=== PATIENT | female | born 1945 | race Caucasian/White ===

== ENCOUNTER 2018-06-22 12:28 | Emergency (ER) | payer MEDICARE, OTHER ==
[~2018-06-22] VITALS: Ht 149.9 cm; Wt 63.5 kg
[~2018-06-22 12:28] MED LIST: FISH OIL PO; FLONASE16 GM; LOSARTAN POTAS100 MG PO; METOPROLOL SUCC25 MG PO; OMEPRAZOLE-BIC1 EAC1 PO; XANAX0.5 MG PO
--- OUTSIDE RECORDS SUMMARY | 2018-06-22 12:32 | XMS REPORT | Continuity of Care Document ---
Author Author [facility] Interface Address Unknown Phone Unavailable Problems Problem Status Onset Date Classification Date Reported Comments Source HYPERTENSION Active Condition 04/19/2013 [facility] HYPERCHOLESTEROLEMIA Active Condition 04/19/2013 [facility] COPD Active Condition 04/19/2013 [facility] SHORTNESS OF BREATH Active Condition 04/19/2013 [facility] Medications Medication Details Route Status Patient Instructions Ordering Provider Order Date Source CRESTOR 5 MG TABS 1 tab po qd No Longer Active 03/21/2013 [facility] LISINOPRIL-HYDROCHLOROTHIAZIDE 20-12.5 MG TABS 1 tab po qd No Longer Active 03/21/2013 [facility] ZEGERID 40-1100 MG CAPS 1 tab po qd No Longer Active 03/21/2013 [facility] AMLODIPINE BESYLATE 5 MG TABS 1 tab once a day Active 03/21/2013 [facility] ALPRAZOLAM 0.5 MG TABS 2 tabs qd Active 03/21/2013 [facility] ATORVASTATIN CALCIUM 10 MG TABS 1 tab once a day Active 03/21/2013 [facility] LOSARTAN POTASSIUM 100 MG TABS 1 tab once a day Active 03/21/2013 [facility] OMEPRAZOLE-SODIUM BICARBONATE 40-1100 MG CAPS 1 tab twice a day Active 03/21/2013 [facility] NASALCROM 5.2 MG/ACT AERS once a day Active 03/21/2013 [facility] ADVIL 500 MG TABS (IBUPROFEN) 2 tabs once a day Active 03/21/2013 [facility] ALL DAY ALLERGY 10 MG TABS 1 tab once a day Active 03/21/2013 [facility] SUPER B-COMPLEX CAPS 1 tab once a day Active 03/21/2013 [facility] VITAMIN D3 1000 UNIT TABS 1 tab once a day Active 03/21/2013 [facility] MULTI-VITAMINS TABS 1 tab once a day Active 03/21/2013 [facility] COQ10 100 MG CAPS 1 tab once a day Active 03/21/2013 [facility] GLUCOSAMINE HCL 500 MG TABS 1 tab once a day Active 03/21/2013 [facility] CINNAMON 500 MG TABS 1 tab once a day Active 03/21/2013 [facility] FISH OIL 1200 MG CAPS 1 tab once a day Active 03/21/2013 [facility] VITAMIN C 1000 MG TABS 1 tab once a day Active 03/21/2013 [facility] CALCIUM 500 MG CHEW 1 tab once a day Active 03/21/2013 [facility] OCUVITE EYE + MULTI TABS 1 tab once a day Active 03/21/2013 [facility] Allergies, Adverse Reactions, Alerts Substance Category Reaction Severity Reaction type Status Date Reported Comments Source Immunizations Immunization Date Given Site Status Last Updated Comments Source Results Order Name Results Value Reference Range Date Interpretation Comments Source Chemistry CHOLESTEROL 222 mg/dl 02/01/2005 [facility] Chemistry HDL 85 mg/dl 02/01/2005 [facility] Chemistry LDL 122 mg/dl 02/01/2005 [facility] Chemistry TRIGLYCERIDE 73 mg/dl 02/01/2005 [facility] Vital Signs Vital Sign Value Date Comments Source Weight 161 04/18/2013 [facility] Systolic (mm Hg) 130 04/18/2013 [facility] Diastolic (mm Hg) 80 04/18/2013 [facility] Heart Rate 80 04/18/2013 [facility] Weight 153 12/11/2009 [facility] Systolic (mm Hg) 120 12/11/2009 [facility] Diastolic (mm Hg) 70 12/11/2009 [facility] Heart Rate 82 12/11/2009 [facility] Encounters Location Location Details Encounter Type Encounter Number Reason For Visit Attending Provider ADM Date DC Date Status Source [facility] [place] Lab Report [id number] Marcos Clements MD 04/19/2013 04/19/2013 [facility] Procedures Procedure Code Date Perfomer Comments Source
--- OUTSIDE RECORDS SUMMARY | 2018-06-22 12:32 | XMS REPORT | Continuity of Care Document ---
Author Author [facility] Organization [facility] Address Unknown Phone Unavailable Care Team Providers Care Department Chair Name Role Phone Starr KINGSLEY, Marcos HURTADO Unavailable Insurance Providers Payer name Policy type / Coverage type Policy ID Covered alliance party ID Policy [employer] [place] [employer] - KRAFT FOODS - BASIS [employer] MED[employer] AET[employer] - KRAFT FOODS - BASIS MAJOR MEDICAL Encounters Encounter Performer Location Date Lab Report Marcos Clements MD [facility] [place] Apr 19, 2013 Problems Problem Effective Dates Problem Status HYPERTENSION Active HYPERCHOLESTEROLEMIA Active COPD Active SHORTNESS OF BREATH Active Procedures Date Description Comments Apr 18, 2013 smoking status former smoker Medications Medication Instructions Start Date Status CRESTOR 5 MG TABS 1 tab po qd Inactive LISINOPRIL-HYDROCHLOROTHIAZIDE 20-12.5 MG TABS 1 tab po qd Inactive ZEGERID 40-1100 MG CAPS 1 tab po qd Inactive AMLODIPINE BESYLATE 5 MG TABS 1 tab once a day Mar 21, 2013 Active ALPRAZOLAM 0.5 MG TABS 2 tabs qd Mar 21, 2013 Active ATORVASTATIN CALCIUM 10 MG TABS 1 tab once a day Mar 21, 2013 Active LOSARTAN POTASSIUM 100 MG TABS 1 tab once a day Mar 21, 2013 Active OMEPRAZOLE-SODIUM BICARBONATE 40-1100 MG CAPS 1 tab twice a day Mar 21, 2013 Active NASALCROM 5.2 MG/ACT AERS once a day Mar 21, 2013 Active ADVIL 500 MG TABS (IBUPROFEN) 2 tabs once a day Mar 21, 2013 Active ALL DAY ALLERGY 10 MG TABS 1 tab once a day Mar 21, 2013 Active SUPER B-COMPLEX CAPS 1 tab once a day Mar 21, 2013 Active VITAMIN D3 1000 UNIT TABS 1 tab once a day Mar 21, 2013 Active MULTI-VITAMINS TABS 1 tab once a day Mar 21, 2013 Active COQ10 100 MG CAPS 1 tab once a day Mar 21, 2013 Active GLUCOSAMINE HCL 500 MG TABS 1 tab once a day Mar 21, 2013 Active CINNAMON 500 MG TABS 1 tab once a day Mar 21, 2013 Active FISH OIL 1200 MG CAPS 1 tab once a day Mar 21, 2013 Active VITAMIN C 1000 MG TABS 1 tab once a day Mar 21, 2013 Active CALCIUM 500 MG CHEW 1 tab once a day Mar 21, 2013 Active OCUVITE EYE + MULTI TABS 1 tab once a day Mar 21, 2013 Active Vital Signs Date Description Test Result Dec 11, 2009 weight E&M - 3141-9 WEIGHT 153 lb Dec 11, 2009 blood pressure, systolic, sitting, right arm BP SYS SIT R 120 null Dec 11, 2009 blood pressure, diastolic, sitting, right arm BP SHEMAR SIT R 70 mmHg Dec 11, 2009 pulse rate E&M - 8867-4 PULSE RATE 82 /min Apr 18, 2013 weight E&M - 3141-9 WEIGHT 161 lb Apr 18, 2013 blood pressure, systolic, sitting, left arm BP SYS SIT L 130 mm Hg Apr 18, 2013 blood pressure, diastolic, sitting, left arm BP SHEMAR SIT L 80 mm Hg Apr 18, 2013 pulse rate, sitting, left PULSE SIT L 80 /min Apr 18, 2013 blood pressure, systolic - 8480-6 BP SYSTOLIC 130 mm Hg Apr 18, 2013 pulse rate E&M - 8867-4 PULSE RATE 80 /min Apr 18, 2013 blood pressure, diastolic - 8462-4 BP DIASTOLIC 80 mm Hg Results Date Description Test Name Value Reference Interpretation Status Feb 01, 2005 cholesterol, serum CHOLESTEROL 222 mg/dl Feb 01, 2005 HDL cholesterol, serum HDL 85 mg/dl Feb 01, 2005 LDL cholesterol, serum LDL 122 mg/dl Feb 01, 2005 triglyceride, serum, fasting TRIGLYCERIDE 73 mg/dl
[2018-06-22] MEDS ORDERED: MELOXICAM 7.5 MG TAB PO NR (14:15)
--- NOTE | 2018-06-22 15:52 | Diagnostic Imaging Report ---
EXAMINATION: RIBS UNILAT W/CXR INDICATION: ^FALL COMPARISON: None FINDINGS: PA and lateral views TUBES and LINES: None. LUNGS: Lungs are well inflated. Minimal left basilar subsegmental atelectasis. PLEURA: No pleural effusion or pneumothorax. HEART AND MEDIASTINUM: The cardiomediastinal silhouette is unremarkable. BONES AND SOFT TISSUES: No acute osseous lesion. Soft tissues are unremarkable. UPPER ABDOMEN: No free air under the diaphragm. IMPRESSION: No acute thoracic abnormality. Specifically, no evidence of right-sided rib fracture. Signed by: Dr. Yoni Mcguire MD on 06/22/2018 3:48 PM
[2018-06-22 17:16] VITALS: BP 137/61
[2018-06-23] MEDS ORDERED: LIDOCAINE 5% PATCH TP ONE (09:00)
== END 2018-06-22 17:19 | disposition home or self-care (01) ==
LOC: ER 12:28
DX: S20.211A Contusion of right front wall of thorax, initial encounter (principal); W18.39XA Other fall on same level, initial encounter; Y92.008 Other place in unspecified non-institutional (private) residence as the place of occurrence of the external cause; I10 Essential (primary) hypertension; J44.9 Chronic obstructive pulmonary disease, unspecified; K21.9 Gastro-esophageal reflux disease without esophagitis; F41.9 Anxiety disorder, unspecified
CPT/HCPCS: 71101; 93005; 99283